=== PATIENT | female | born 2000 ===

== ENCOUNTER 2023-01-06 06:51 | Day surgery (SDC) | payer OTHER ==
[~2023-01-06 06:51] MED LIST: DICLOFENAC-MIS1 EAC3 PO; ORPHENADRINE C100 MG PO; PERCOCET 10-321 EACH PO
== END 2023-01-07 02:00 | disposition home or self-care (01) ==
LOC: CIR.AMB 06:51
PROVIDERS: ATTEND Orthopaedic Surgery Hand Surgery
DX: S52.391A Other fracture of shaft of radius, right arm, initial encounter for closed fracture (principal); Z86.16 Personal history of COVID-19; Z20.822 Contact with and (suspected) exposure to COVID-19